=== PATIENT | male | born 1995 | race Two or more races ===

== ENCOUNTER 2018-05-26 20:06 | Emergency (ER) | payer SELFPAY ==
[~2018-05-26] VITALS: Ht 180.3 cm; Wt 108.9 kg
[2018-05-26 20:24] VITALS: BP 114/63
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
== END 2018-05-26 21:56 | disposition home or self-care (01) ==
LOC: ER 20:06
DX: S90.32XA Contusion of left foot, initial encounter (principal); S90.31XA Contusion of right foot, initial encounter; V03.90XA Pedestrian on foot injured in collision with car, pick-up truck or van, unspecified whether traffic or nontraffic accident, initial encounter; Y93.01 Activity, walking, marching and hiking; Y92.488 Other paved roadways as the place of occurrence of the external cause; Y99.8 Other external cause status
CPT/HCPCS: 73630; 99283